=== PATIENT | male | born 1990 | race Caucasian/White ===

== ENCOUNTER 2018-01-20 22:29 | Inpatient (IN) | payer OTHER ==
[~2018-01-20] VITALS: Ht 180.3 cm; Wt 80.0 kg
[2018-01-21] LABS: BASOPHILS % (AUTO) 0 % (0-1); EOSINOPHILS # (AUTO) 0.07 x10^3/uL (0-0.4); EOSINOPHILS % (AUTO) 1 % (1-7); LYMPHOCYTES # (AUTO) 2.04 x10^3/uL (1-3.4); LYMPHOCYTES % (AUTO) 33 % (22-44); MD NO; MEAN CORPUSCULAR HEMOGLOBIN 35.5 pg (27.5-34.5); MEAN CORPUSCULAR HGB CONC 34.9 g/dL (33.2-36.2); MEAN CORPUSCULAR VOLUME 101.7 fL (81-97); MEAN PLATELET VOLUME 8.4 fL (7.4-10.4); MONOCYTES % (AUTO) 13 % (2-9); NEUTROPHILS # (AUTO) 3.23 x10^3/uL (1.8-6.8); NEUTROPHILS % (AUTO) 53 % (42-75); PLATELET COUNT 268 x10^3/uL (130-400); RED CELL DISTRIBUTION WIDTH 15.3 % (9.4-14.8)
[2018-01-21 00:09] LABS: INTERNATIONAL NORMALIZED RATIO 0.96 (0.93-1.1); PROTHROMBIN TIME 9.9 Seconds (9.6-11.5)
[2018-01-21 00:12] LABS: CHLORIDE 106 mmol/L (98-107)
[2018-01-21 00:24] LABS: ALANINE AMINOTRANSFERASE 1839 U/L (12-78); ALBUMIN 3.8 g/dL (3.4-5.0); ALKALINE PHOSPHATASE 205 U/L (45-117); ANION GAP 6 mmol/L (5-15); BILIRUBIN,TOTAL 10.5 mg/dL (0.2-1.0); CREATININE 0.86 mg/dL (0.7-1.3); TOTAL PROTEIN 7.3 g/dL (6.4-8.2)
[2018-01-21 00:33] LABS: MICROSCOPIC AUTO
[2018-01-21 00:36] LABS: CULTURE INDICATED? YES
[2018-01-21] MEDS ORDERED: ONDANSETRON 2MG/ML, 2ML IVPush PRN ×2 (01:30→02:00)
[2018-01-21] MEDS ORDERED: POTASSIUM CHLORIDE 20 MEQ, MVI ADULT 10 ML, FOLIC ACID 1 MG, MAGNESIUM SULFATE 1 GM in ... IV SCH (01:51)
[2018-01-21] MEDS ORDERED: GUAIFENESIN/COD200MG-20MG/10ML LIQUID PO PRN (02:00)
[2018-01-21] MEDS ORDERED: THIAMINE 200 MG in DEXTROSE 5% 50 ML IVPB ONE (02:00)
[2018-01-21] MEDS ORDERED: PANTOPRAZOLE 40 MG IV IVPush SCH (02:00)
[2018-01-21] MEDS ORDERED: LORazepam 2 MG/ML, 1ML IV PRN ×4 (02:00)
[2018-01-21] MEDS ORDERED: DOCUSATE 100 MG CAPSULE PO PRN (02:00)
[2018-01-21] MEDS ORDERED: NICOTINE 7 MG/24 HR PATCH.TD24 TD SCH (02:00)
[2018-01-21] MEDS ORDERED: hydrALAzine 20 MG/ML, 1ML IVPush PRN (02:00)
[2018-01-21 03:35] VITALS: BP 123/83
[2018-01-21 05:24] LABS: BASOPHILS # (AUTO) 0.01 x10^3/uL (0-0.1); BASOPHILS % (AUTO) 0 % (0-1); EOSINOPHILS # (AUTO) 0.09 x10^3/uL (0-0.4); EOSINOPHILS % (AUTO) 2 % (1-7); LYMPHOCYTES # (AUTO) 2.27 x10^3/uL (1-3.4); LYMPHOCYTES % (AUTO) 37 % (22-44); MD NO; MEAN CORPUSCULAR HEMOGLOBIN 35.2 pg (27.5-34.5); MEAN CORPUSCULAR HGB CONC 34.7 g/dL (33.2-36.2); MEAN CORPUSCULAR VOLUME 101.5 fL (81-97); MEAN PLATELET VOLUME 8.7 fL (7.4-10.4); MONOCYTES # (AUTO) 0.87 x10^3/uL (0.2-0.8); MONOCYTES % (AUTO) 14 % (2-9); NEUTROPHILS # (AUTO) 2.83 x10^3/uL (1.8-6.8); NEUTROPHILS % (AUTO) 47 % (42-75); PLATELET COUNT 261 x10^3/uL (130-400); RED CELL DISTRIBUTION WIDTH 15.3 % (9.4-14.8)
[2018-01-21 05:40] LABS: CHLORIDE 105 mmol/L (98-107)
[2018-01-21 06:03] LABS: ALANINE AMINOTRANSFERASE 1786 U/L (12-78); ALBUMIN 3.7 g/dL (3.4-5.0); ALKALINE PHOSPHATASE 198 U/L (45-117); ANION GAP 12 mmol/L (5-15); CALCIUM 8.5 mg/dL (8.5-10.1); CREATININE 0.73 mg/dL (0.7-1.3)
[2018-01-21] MEDS: MULTIVITAMINS/MINERALS TABLET PO SCH (07:38)
[2018-01-21] MEDS: SUCRALFATE 1 GM/10 ML UDC PO SCH ×4 (07:38→20:51)
[2018-01-21 08:40] VITALS: BP 109/67
[2018-01-21 14:12] VITALS: BP 116/71
[2018-01-21] MEDS: PANTOPROZOLE 40MG TABLET PO SCH (16:49)
[2018-01-21 19:05] VITALS: BP 123/85
[2018-01-21] MEDS: OXYcodone IR 5MG TABLET PO PRN (22:51)
[2018-01-21] MEDS: NICOTINE 14MG/24 HR PATCH.TD24 TD SCH (22:53)
[2018-01-22 02:05] VITALS: BP 102/64
[2018-01-22] MEDS: SUCRALFATE 1 GM/10 ML UDC PO SCH ×4 (06:41→21:02)
[2018-01-22 07:22] VITALS: BP 100/63
[2018-01-22] MEDS: PANTOPROZOLE 40MG TABLET PO SCH ×2 (08:24→16:04)
[2018-01-22] MEDS: MULTIVITAMINS/MINERALS TABLET PO SCH (08:24)
[2018-01-22] MEDS: THIAMINE 100MG TABLET PO SCH (08:24)
[2018-01-22] MEDS ORDERED: THIAMINE 100 MG in DEXTROSE 5% 50 ML IVPB SCH (09:00)
[2018-01-22 09:47] LABS: ALBUMIN 3.3 g/dL (3.4-5.0); ANION GAP 5 mmol/L (5-15); CALCIUM 8.6 mg/dL (8.5-10.1); CHLORIDE 105 mmol/L (98-107); CREATININE 0.91 mg/dL (0.7-1.3)
[2018-01-22 09:54] LABS: ALANINE AMINOTRANSFERASE 1652 U/L (12-78); ALKALINE PHOSPHATASE 198 U/L (45-117); BILIRUBIN,TOTAL 9.7 mg/dL (0.2-1.0); TOTAL PROTEIN 6.7 g/dL (6.4-8.2)
[2018-01-22] MEDS: FOLIC ACID 1 MG TABLET PO SCH (10:25)
[2018-01-22] MEDS ORDERED: POTASSIUM CHLORIDE 20 MEQ, MVI ADULT 10 ML, FOLIC ACID 1 MG, MAGNESIUM SULFATE 1 GM in ... IV PRN (11:30)
[2018-01-22 13:31] VITALS: BP 107/73
[2018-01-22] MEDS: OXYcodone IR 5MG TABLET PO PRN ×2 (16:07→22:01)
[2018-01-22] MEDS ORDERED: CHOLESTYRAMINE LIGHT 4GM PACKET PO ONE (18:00)
[2018-01-22 19:42] VITALS: BP 106/67
[2018-01-22] MEDS: NICOTINE 14MG/24 HR PATCH.TD24 TD SCH (21:02)
[2018-01-22] MEDS: LORazepam 2 MG/ML, 1ML IV PRN (21:03)
[2018-01-23 02:03] VITALS: BP 108/63
[2018-01-23 05:24] LABS: ALBUMIN 3.4 g/dL (3.4-5.0); ANION GAP 7 mmol/L (5-15); CALCIUM 8.6 mg/dL (8.5-10.1); CHLORIDE 103 mmol/L (98-107); CREATININE 0.79 mg/dL (0.7-1.3)
[2018-01-23] MEDS: LORazepam 2 MG/ML, 1ML IV PRN (05:31)
[2018-01-23] MEDS: OXYcodone IR 5MG TABLET PO PRN (05:31)
[2018-01-23 05:33] LABS: ALANINE AMINOTRANSFERASE 1644 U/L (12-78); ALKALINE PHOSPHATASE 191 U/L (45-117); BILIRUBIN,TOTAL 8.8 mg/dL (0.2-1.0); TOTAL PROTEIN 6.8 g/dL (6.4-8.2)
[2018-01-23] MEDS: SUCRALFATE 1 GM/10 ML UDC PO SCH ×4 (06:36→21:00)
[2018-01-23 07:10] VITALS: BP 100/66
[2018-01-23] MEDS: THIAMINE 100MG TABLET PO SCH (08:38)
[2018-01-23] MEDS: FOLIC ACID 1 MG TABLET PO SCH (08:38)
[2018-01-23] MEDS: MULTIVITAMINS/MINERALS TABLET PO SCH (08:38)
[2018-01-23] MEDS: PANTOPROZOLE 40MG TABLET PO SCH ×2 (08:38→16:59)
[2018-01-23 13:22] VITALS: BP 98/59
[2018-01-23] MEDS ORDERED: LORazepam 1MG TABLET PO ONE (17:00)
[2018-01-23 18:53] VITALS: BP 117/71
[2018-01-23] MEDS: NICOTINE 14MG/24 HR PATCH.TD24 TD SCH (21:01)
[2018-01-24 01:18] VITALS: BP 106/65
[2018-01-24 05:56] LABS: ALBUMIN 3.3 g/dL (3.4-5.0)
[2018-01-24 06:07] LABS: BILIRUBIN, DIRECT 6.1 mg/dL (0.1-0.2); BILIRUBIN,INDIRECT 1.5 mg/dL (0.0-2.0); BILIRUBIN,TOTAL 7.6 mg/dL (0.2-1.0); TOTAL PROTEIN 6.8 g/dL (6.4-8.2)
[2018-01-24] MEDS: SUCRALFATE 1 GM/10 ML UDC PO SCH ×4 (07:39→20:49)
[2018-01-24] MEDS: PANTOPROZOLE 40MG TABLET PO SCH ×2 (08:15→16:48)
[2018-01-24] MEDS: THIAMINE 100MG TABLET PO SCH (08:15)
[2018-01-24] MEDS: FOLIC ACID 1 MG TABLET PO SCH (08:15)
[2018-01-24] MEDS: MULTIVITAMINS/MINERALS TABLET PO SCH (08:15)
[2018-01-24 08:45] VITALS: BP 110/73
[2018-01-24] MEDS: OXYcodone IR 5MG TABLET PO PRN ×3 (09:55→23:28)
[2018-01-24] MEDS ORDERED: CHOLESTYRAMINE LIGHT 4GM PACKET PO ONE (12:30)
[2018-01-24 13:25] VITALS: BP 97/57
[2018-01-24 20:10] VITALS: BP 115/72
[2018-01-24] MEDS: NICOTINE 14MG/24 HR PATCH.TD24 TD SCH (20:48)
[2018-01-25 01:00] VITALS: BP 107/74
[2018-01-25 05:55] LABS: ALBUMIN 3.4 g/dL (3.4-5.0); BILIRUBIN, DIRECT 5.5 mg/dL (0.1-0.2)
[2018-01-25 06:07] LABS: BILIRUBIN,INDIRECT 1.2 mg/dL (0.0-2.0); BILIRUBIN,TOTAL 6.7 mg/dL (0.2-1.0)
[2018-01-25] MEDS: SUCRALFATE 1 GM/10 ML UDC PO SCH ×4 (06:27→21:41)
[2018-01-25 07:14] VITALS: BP 98/59
[2018-01-25] MEDS: THIAMINE 100MG TABLET PO SCH (07:45)
[2018-01-25] MEDS: MULTIVITAMINS/MINERALS TABLET PO SCH (07:45)
[2018-01-25] MEDS: PANTOPROZOLE 40MG TABLET PO SCH ×2 (07:45→17:21)
[2018-01-25] MEDS: FOLIC ACID 1 MG TABLET PO SCH (07:46)
[2018-01-25] MEDS: OXYcodone IR 5MG TABLET PO PRN ×3 (07:50→21:50)
[2018-01-25] MEDS: LORazepam 2 MG/ML, 1ML IV PRN (10:06)
[2018-01-25] MEDS ORDERED: LORazepam 1MG TABLET PO PRN (10:30)
[2018-01-25 13:34] VITALS: BP 124/77
[2018-01-25] MEDS: LORazepam 0.5MG TABLET PO PRN ×2 (15:05→21:50)
[2018-01-25] MEDS ORDERED: ACETYLCYSTEINE IV ONE ×4 (15:30→21:30)
[2018-01-25] MEDS ORDERED: DEXTROSE 5% IV ONE ×4 (15:30→21:30)
[2018-01-25 20:00] VITALS: BP 129/86
[2018-01-25] MEDS: NICOTINE 14MG/24 HR PATCH.TD24 TD SCH (21:41)
[2018-01-26 01:35] VITALS: BP 132/86
[2018-01-26 05:08] LABS: INTERNATIONAL NORMALIZED RATIO 0.98 (0.93-1.1); PROTHROMBIN TIME 10.1 Seconds (9.6-11.5)
[2018-01-26 05:10] LABS: ALBUMIN 3.2 g/dL (3.4-5.0); ANION GAP 7 mmol/L (5-15); CALCIUM 8.6 mg/dL (8.5-10.1); CHLORIDE 103 mmol/L (98-107); CREATININE 0.69 mg/dL (0.7-1.3)
[2018-01-26 05:17] LABS: ALANINE AMINOTRANSFERASE 1736 U/L (12-78); ALKALINE PHOSPHATASE 185 U/L (45-117); BILIRUBIN,TOTAL 6.9 mg/dL (0.2-1.0); TOTAL PROTEIN 6.8 g/dL (6.4-8.2)
[2018-01-26 05:18] LABS: MEAN CORPUSCULAR HEMOGLOBIN 35.3 pg (27.5-34.5); MEAN CORPUSCULAR HGB CONC 35.5 g/dL (33.2-36.2); MEAN CORPUSCULAR VOLUME 99.4 fL (81-97); MEAN PLATELET VOLUME 9.2 fL (7.4-10.4); PLATELET COUNT 286 x10^3/uL (130-400); RED BLOOD COUNT 4.24 x10^6/uL (4.38-5.82); RED CELL DISTRIBUTION WIDTH 15.3 % (9.4-14.8)
[2018-01-26 06:04] LABS: BASOPHILS # (AUTO) 0.03 x10^3/uL (0-0.1); BASOPHILS % (AUTO) 0 % (0-1); EOSINOPHILS # (AUTO) 0.12 x10^3/uL (0-0.4); EOSINOPHILS % (AUTO) 2 % (1-7); LYMPHOCYTES # (AUTO) 2.87 x10^3/uL (1-3.4); LYMPHOCYTES % (AUTO) 41 % (22-44); MD SCAN; MONOCYTES # (AUTO) 0.93 x10^3/uL (0.2-0.8); MONOCYTES % (AUTO) 13 % (2-9); NEUTROPHILS # (AUTO) 3.01 x10^3/uL (1.8-6.8); NEUTROPHILS % (AUTO) 43 % (42-75)
[2018-01-26] MEDS: SUCRALFATE 1 GM/10 ML UDC PO SCH ×4 (06:25→21:36)
[2018-01-26 08:06] VITALS: BP 131/90
[2018-01-26] MEDS: LORazepam 0.5MG TABLET PO PRN ×2 (08:21→13:16)
[2018-01-26] MEDS: PANTOPROZOLE 40MG TABLET PO SCH ×2 (08:21→16:27)
[2018-01-26] MEDS: MULTIVITAMINS/MINERALS TABLET PO SCH (08:21)
[2018-01-26] MEDS: THIAMINE 100MG TABLET PO SCH (08:21)
[2018-01-26] MEDS: OXYcodone IR 5MG TABLET PO PRN ×2 (08:21→18:23)
[2018-01-26] MEDS: FOLIC ACID 1 MG TABLET PO SCH (08:23)
[2018-01-26 14:30] VITALS: BP 104/65
[2018-01-26] MEDS: LORazepam 1MG TABLET PO PRN ×2 (18:23→23:54)
[2018-01-26 20:28] VITALS: BP 125/82
[2018-01-26] MEDS: NICOTINE 14MG/24 HR PATCH.TD24 TD SCH (21:36)
[2018-01-27] MEDS: OXYcodone IR 5MG TABLET PO PRN ×2 (00:17→14:43)
[2018-01-27 02:16] VITALS: BP 97/67
[2018-01-27] MEDS: LORazepam 1MG TABLET PO PRN ×2 (02:41→14:45)
[2018-01-27 05:17] LABS: INTERNATIONAL NORMALIZED RATIO 0.96 (0.93-1.1); PROTHROMBIN TIME 9.9 Seconds (9.6-11.5)
[2018-01-27 05:19] LABS: ANION GAP 5 mmol/L (5-15); CALCIUM 8.7 mg/dL (8.5-10.1); CHLORIDE 103 mmol/L (98-107)
[2018-01-27 05:34] LABS: ALANINE AMINOTRANSFERASE 1669 U/L (12-78); ALKALINE PHOSPHATASE 182 U/L (45-117); BILIRUBIN,TOTAL 5.7 mg/dL (0.2-1.0); TOTAL PROTEIN 6.4 g/dL (6.4-8.2)
[2018-01-27] MEDS: SUCRALFATE 1 GM/10 ML UDC PO SCH ×4 (06:24→21:19)
[2018-01-27 07:17] VITALS: BP 105/69
[2018-01-27] MEDS: THIAMINE 100MG TABLET PO SCH (08:49)
[2018-01-27] MEDS: FOLIC ACID 1 MG TABLET PO SCH (08:49)
[2018-01-27] MEDS: MULTIVITAMINS/MINERALS TABLET PO SCH (08:49)
[2018-01-27] MEDS: PANTOPROZOLE 40MG TABLET PO SCH ×2 (08:49→16:21)
[2018-01-27 15:23] VITALS: BP 110/75
[2018-01-27 18:53] VITALS: BP 108/67
[2018-01-27] MEDS: NICOTINE 14MG/24 HR PATCH.TD24 TD SCH (21:17)
[2018-01-28] MEDS: OXYcodone IR 5MG TABLET PO PRN (00:25)
[2018-01-28] MEDS: LORazepam 1MG TABLET PO PRN ×2 (00:25→06:35)
[2018-01-28 01:46] VITALS: BP 116/78
[2018-01-28 05:43] LABS: CHLORIDE 106 mmol/L (98-107)
[2018-01-28 05:57] LABS: ALANINE AMINOTRANSFERASE 1560 U/L (12-78); ALBUMIN 3.1 g/dL (3.4-5.0); ALKALINE PHOSPHATASE 180 U/L (45-117); BILIRUBIN,TOTAL 4.9 mg/dL (0.2-1.0); CALCIUM 8.5 mg/dL (8.5-10.1); CREATININE 0.69 mg/dL (0.7-1.3); TOTAL PROTEIN 6.6 g/dL (6.4-8.2)
[2018-01-28] MEDS: SUCRALFATE 1 GM/10 ML UDC PO SCH ×2 (06:27→10:51)
[2018-01-28 06:42] LABS: ANION GAP 6 mmol/L (5-15)
[2018-01-28] MEDS: MULTIVITAMINS/MINERALS TABLET PO SCH (08:15)
[2018-01-28] MEDS: FOLIC ACID 1 MG TABLET PO SCH (08:15)
[2018-01-28] MEDS: THIAMINE 100MG TABLET PO SCH (08:15)
[2018-01-28] MEDS: PANTOPROZOLE 40MG TABLET PO SCH (08:15)
[2018-01-28 08:26] VITALS: BP 126/84
[2018-01-28] MEDS ORDERED: POTASSIUM CHLORIDE 20 MEQ, MVI ADULT 10 ML, FOLIC ACID 1 MG, MAGNESIUM SULFATE 1 GM in ... IV PRN (11:30)
[2018-01-28 12:11] LABS: T4 (THYROXINE) 13.7 mcg/dL (4.5-12.1)
[2018-01-28] MEDS ORDERED: ACID1TAB7 PO (13:40)
[2018-01-28] MEDS ORDERED: MULT-484 PO (13:40)
[2018-01-28] MEDS ORDERED: NICO-486 TD (13:40)
[2018-01-30 17:45] LABS: ANA SCREEN NEGATIVE (Negative)
== END 2018-01-28 14:15 | disposition home or self-care (01) | DRG 433 ==
LOC: ED 01-21 01:28 → 4EST 01-21 01:29 → 4NOR 01-21 01:55 → ED 01-21 02:09
PROVIDERS: ADMIT Internal Medicine; ATTEND Internal Medicine
DX: K70.10 Alcoholic hepatitis without ascites (principal); B19.10 Unspecified viral hepatitis B without hepatic coma; E44.0 Moderate protein-calorie malnutrition; K29.70 Gastritis, unspecified, without bleeding; F10.10 Alcohol abuse, uncomplicated; E87.6 Hypokalemia; F12.10 Cannabis abuse, uncomplicated; F17.210 Nicotine dependence, cigarettes, uncomplicated; G47.00 Insomnia, unspecified; J06.9 Acute upper respiratory infection, unspecified; K70.30 Alcoholic cirrhosis of liver without ascites; D75.89 Other specified diseases of blood and blood-forming organs; B19.20 Unspecified viral hepatitis C without hepatic coma; K76.0 Fatty (change of) liver, not elsewhere classified; Z68.24 Body mass index [BMI] 24.0-24.9, adult; Z82.49 Family history of ischemic heart disease and other diseases of the circulatory system
CPT/HCPCS: 36415; 99285; J7042; 80053; 80076; 80307; 81001; 83540; 83550; 83690; 83735; 84100; 84436; 84481; 85025; 85610; 85730; 86038; 87086; 87522; 87902; J0132; J2405; J3411; J3475; J3480; J7060; J7070; C9113; J2060

== ENCOUNTER 2018-05-26 11:35 | Emergency (ER) | payer SELFPAY ==
[~2018-05-26] VITALS: Ht 180.3 cm; Wt 78.3 kg
[~2018-05-26 11:35] MED LIST: ACID1TAB7 PO; MULT-484 PO; NICO-486 TD
[2018-05-26] MEDS ORDERED: LORazepam 1MG TABLET PO ONE (12:00)
[2018-05-26] MEDS ORDERED: LORazepam 1MG TABLET ONE (12:08)
[2018-05-26] MEDS ORDERED: DIPH,PERTUSS(ACELL),TET VAC/PF 0.5 ML IM-VACC ONE ×2 (13:30→13:43)
[2018-05-26 13:53] VITALS: BP 118/75
== END 2018-05-26 14:09 | disposition home or self-care (01) ==
LOC: ED 13:22
DX: S01.511A Laceration without foreign body of lip, initial encounter (principal); X58.XXXA Exposure to other specified factors, initial encounter; Y93.89 Activity, other specified; Y92.89 Other specified places as the place of occurrence of the external cause; Y99.8 Other external cause status
CPT/HCPCS: 70486; 90471; 90715; 99284